=== PATIENT | female | born 1995 | race Hispanic/Latino ===

== ENCOUNTER 2021-05-27 16:08 | Inpatient (IN) | payer MEDICAID, OTHER, SELFPAY ==
[2021-05-27] MEDS ORDERED: Promethazine HCl 25 MG/ML VIAL IM PRN (22:40)
[2021-05-27] MEDS ORDERED: Misoprostol 200 MCG TAB PR PRN (22:40)
[2021-05-27] MEDS ORDERED: Acetaminophen 500 MG TAB PO PRN (22:40)
[2021-05-27] MEDS ORDERED: Ibuprofen 800 MG TAB PO PRN (22:40)
[2021-05-27] MEDS ORDERED: Ondansetron PF 4 MG/2 ML Vial IVP PRN (22:40)
[2021-05-27] MEDS ORDERED: HYDROcodone/Acetaminophen 5/325 mg Tablet PO PRN (22:40)
[2021-05-27] MEDS ORDERED: Butorphanol Tartrate 1 MG/ML VIAL SLOW IVP PRN (22:40)
[2021-05-27] MEDS ORDERED: Carboprost 250 MCG/ML AMP IM PRN (22:40)
[2021-05-27] MEDS ORDERED: Methylergonovine 0.2 MG/ML VIAL IM PRN (22:40)
[2021-05-27] MEDS ORDERED: Diphenoxylate HCl/Atropine Tablet PO PRN (22:40)
[2021-05-27] MEDS ORDERED: Lidocaine 1% (PF) 30 ML VIAL SC PRN (22:40)
[2021-05-27] MEDS ORDERED: hydrALAZINE 20 MG/ML VIAL SLOW IVP PRN (22:40)
[2021-05-27 22:55] VITALS: BMI 31.8
[2021-05-27] MEDS ORDERED: NS w/ Oxytocin 30 units 500 ML IV SCH (23:00)
[2021-05-27] MEDS ORDERED: Penicillin G Potassium 5 MILL.UNITS in Sodium Chloride 0.9% 100 ML IVPB SCH (23:00)
[2021-05-28 00:20] LABS: Hemoglobin 10.7 g/dL (12.0-15.5); Mean Corpuscular HGB CONC 33.3 g/dL (32.0-36.0); Mean Corpuscular Hemoglobin 27.5 pg (27.0-33.0); Mean Corpuscular Volume 82.5 fl (81.6-98.3); Mean Platelet Volume 12.2 fl (7.4-10.4); Platelet Count 298 10x3/uL (150-450); RBC Distribution Width 13.9 % (11.5-14.5); Red Blood Cell (RBC) Count 3.89 10x6/uL (3.90-5.03)
[2021-05-28] MEDS: Misoprostol 100 MCG TAB PO SCH ×2 (00:25→13:58)
[2021-05-28 00:53] LABS: SARS-CoV-2 NAA Rapid Test Not Detected (NotDetected)
[2021-05-28 00:54] LABS: Hep B Surf Ag Non-Reactive S/CO (NonReactive); Syphilis Antibody Nonreactive (Nonreactive); Syphilis Antibody Index 0.03 S/CO (<1.00 Non-Reactive)
[2021-05-28] MEDS: Penicillin G 2.5 MILL.units 2.5 MILL.UNITS in Premix Bag 1 BAG IVPB SCH ×2 (05:17→09:33)
[2021-05-28] MEDS: NS w/ Oxytocin 30 units 500 ML IV SCH ×2 (06:49→10:46)
[2021-05-28] MEDS: Lactated Ringer's 1,000 ML IV SCH (07:39)
[2021-05-28] MEDS ORDERED: Boostrix 0.5 ML (Tdap) VIAL IM ONE (12:36)
[2021-05-28] MEDS ORDERED: HYDROcodone/Acetaminophen 5/325 mg Tablet PO PRN (12:36)
[2021-05-28] MEDS ORDERED: Lanolin Ointment 7 GM TUBE TOP PRN (12:36)
[2021-05-28] MEDS ORDERED: Ondansetron PF 4 MG/2 ML Vial IVP PRN (12:36)
[2021-05-28] MEDS ORDERED: Milk Of Magnesia 30 ML UDCUP PO PRN (12:36)
[2021-05-28] MEDS ORDERED: Benzocaine-Menthol 82.5 ML CAN TOP PRN (12:36)
[2021-05-28] MEDS ORDERED: NS w/ Oxytocin 30 units 500 ML IV SCH (12:36)
[2021-05-28] MEDS ORDERED: hydrALAZINE 20 MG/ML VIAL SLOW IVP PRN (12:36)
[2021-05-28] MEDS ORDERED: Bisacodyl 10 MG SUPP PR PRN (12:36)
[2021-05-28] MEDS: Ibuprofen 800 MG TAB PO SCH ×2 (15:27→22:02)
[2021-05-28] MEDS: Ferrous Sulfate 325 MG TAB PO SCH (16:16)
[2021-05-28] MEDS: Docusate 100 MG CAP PO SCH (22:02)
[2021-05-29] MEDS: Ibuprofen 800 MG TAB PO SCH ×2 (06:00→14:18)
[2021-05-29] MEDS: Ferrous Sulfate 325 MG TAB PO SCH (08:18)
[2021-05-29] MEDS: Docusate 100 MG CAP PO SCH (09:29)
[2021-05-29] MEDS: Lactated Ringer's 1,000 ML IV SCH (10:09)
[2021-05-29] MEDS: Penicillin G 2.5 MILL.units 2.5 MILL.UNITS in Premix Bag 1 BAG IVPB SCH (10:09)
[2021-05-29 11:35] VITALS: BP 100/57; TEMP 98.4
== END 2021-05-29 14:40 | disposition home or self-care (01) | DRG 805 ==
LOC: CSHLD 22:10 → CSHPP 05-28 12:30
PROVIDERS: ADMIT Family Medicine; ATTEND Family Medicine
PROC: 10E0XZZ Delivery of Products of Conception, External Approach (ICD-10-PCS; principal; 2021-05-28)
PROC: 10907ZC Drainage of Amniotic Fluid, Therapeutic from Products of Conception, Via Natural or Artificial Opening (ICD-10-PCS; 2021-05-28)
PROC: 3E0P7VZ Introduction of Hormone into Female Reproductive, Via Natural or Artificial Opening (ICD-10-PCS; 2021-05-28)
PROC: 3E0DXGC Introduction of Other Therapeutic Substance into Mouth and Pharynx, External Approach (ICD-10-PCS; 2021-05-28)
PROC: 0KQM0ZZ Repair Perineum Muscle, Open Approach (ICD-10-PCS; 2021-05-28)
DX: O26.62 Liver and biliary tract disorders in childbirth (principal); K83.1 Obstruction of bile duct; Z37.0 Single live birth; O71.4 Obstetric high vaginal laceration alone; Z3A.37 37 weeks gestation of pregnancy; Z20.822 Contact with and (suspected) exposure to COVID-19
CPT/HCPCS: 36415; 85027; 86780; 86850; 86900; 86901; 87340; J2001; J2540; J2590; J3490; J7120; U0002

== ENCOUNTER 2021-05-30 15:39 | Emergency (ER) | payer MEDICAID | END 2021-05-30 16:57 | disposition home or self-care (01) | LOC: CSHERS 15:39 | DX: R20.0 Anesthesia of skin (principal) ==

== ENCOUNTER 2022-03-01 20:16 | Emergency (ER) | payer MEDICAID, SELFPAY ==
[2022-03-01 20:54] LABS: #Eosinphils 0.1 10x3/uL (0.0-0.5); #Monocytes 0.3 10x3/uL (0.0-1.1); #Neutrophils 4.6 10x3/uL (1.5-8.4); %Basophils 0.3 % (0.0-2.0); %Eosinophils 0.9 % (0.0-6.0); %Lymphocytes 24.2 % (18.0-47.0); %Monocytes 4.1 % (0.0-10.0); %Neutrophils 70.3 % (40.0-75.0); Hemoglobin 13.5 g/dL (12.0-15.5); Mean Corpuscular HGB CONC 34.4 g/dL (32.0-36.0); Mean Corpuscular Volume 84.1 fl (81.6-98.3); Mean Platelet Volume 10.2 fl (7.4-10.4); Platelet Count 331 10x3/uL (150-450); Red Blood Cell (RBC) Count 4.66 10x6/uL (3.90-5.03); White Blood Cell (WBC) Count 6.5 10x3/uL (3.5-10.5)
[2022-03-01 21:06] LABS: ALT (SGPT) 49 U/L (8-55); AST (SGOT) 24 U/L (5-34); Albumin 4.8 g/dL (3.5-5.0); Alkaline Phosphatase 99 U/L (40-110); Anion Gap 13 mmol/L (10-20); BUN (Urea Nitrogen) 11 mg/dL (7.0-18.7); Bilirubin, Total 0.3 mg/dL (0.2-1.2); Calc. Creatinine Clearance 0 mL/min (70-130); Calcium 9.7 mg/dL (7.8-10.44); Carbon Dioxide 26 mmol/L (22-29); Chloride 107 mmol/L (98-107); Estimated GFR 122; Glucose 127 mg/dL (70-105); Lipase 22 U/L (8-78); Potassium 3.9 mmol/L (3.5-5.1); Protein, Total 7.8 g/dL (6.0-8.3); Sodium 142 mmol/L (136-145)
[2022-03-01 21:54] LABS: BHCG - Serum Negative (NEGATIVE); Pregs Control Background? CLEAR/WHITE (CLR/WHITE); Pregs Control Bar Appear? YES (CONTROL BAR)
== END 2022-03-01 23:50 | disposition home or self-care (01) ==
LOC: CSHERS 20:16
DX: R07.9 Chest pain, unspecified (principal)
CPT/HCPCS: 36415; 71045; 71275; 80053; 83690; 84484; 84703; 85025; 93005